=== PATIENT | male | born 1945 | race Hispanic/Latino ===

== ENCOUNTER → 2017-10-11 | Outpatient (CLI) | payer MEDICARE ==
[~2017-10-11] MED LIST: IOPAMIDOL 370 MG/ML 200 ML INFUS..BTL INJ ONE; SODIUM CHLORIDE 0.9% 50ML 50 ML ONE
[2017-10-11 16:24] LABS: CREATININE, SERUM 8.03 mg/dL (0.72-1.25)
--- NOTE | 2017-10-12 07:51 | Diagnostic Imaging Report ---
CT scan abdomen, pelvis and lower extremities. October 11, 2017 Clinical history: Atherosclerosis; leg swelling Technique: Arterial phase protocol CT abdomen, pelvis and lower extremities performed after 100 mL Isovue-370 intravenous contrast. No enteric contrast was administered. Coronal, sagittal and axial images generated from source data. Dose: 1367.69 mGy-cm Comparison: None Findings: Vascular: Abdominal aorta: Mild vpb-visq-ogepcxwa atheromatous plaque. Normal diameter. Celiac axis: Mild ostial calcified plaque and splenic artery arteriosclerosis. Otherwise, normal SMA: Normal JONNY: Normal Renal arteries: Normal Right lower extremity: Common iliac, external iliac, common femoral, profunda femoris and superficial femoral artery demonstrate trace atherosclerosis. Popliteal artery: Proximal calcified and noncalcified plaque with less than 50% narrowing. Anterior tibial artery: Proximally occluded without conspicuous distal reconstitution. The origin remains patent. Tibioperoneal trunk: Fhf-zpnx-kbtjeknh atheromatous plaque. Posterior tibial artery: Multifocal stenosis secondary to calcified plaque with preserved runoff. Peroneal artery: Patent Dorsalis pedis: Diminutive reconstitution. Plantar arteries: Patent. Left lower extremity: Common iliac, external iliac, common femoral, profundus femoris, superficial femoral and popliteal artery are unremarkable. Anterior tibial artery: Proximally occluded without conspicuous distal reconstitution. The origin remains patent. Tibioperoneal trunk: Aln-nkrn-xlotlxvm atheromatous plaque. Posterior tibial artery: Multifocal stenosis secondary to calcified plaque with preserved runoff. Peroneal artery: Patent Results pedis: No conspicuous reconstitution. Plantar arteries: Patent Nonvascular findings: Small pleural effusions bilaterally. Bibasilar subsegmental atelectasis. Lung bases otherwise clear. Normal heart size. Left anterior descending coronary artery calcification. Liver: Nodular contour with left lobe and caudate hypertrophy. Gallbladder: Normal Pancreas: Atrophic; otherwise, normal Spleen: Span 16 cm Adrenal glands: Mild to getting without nodularity. Kidneys: Bilateral parenchymal atrophy; otherwise, normal Urinary bladder: Decompressed Prostate and seminal vesicles: Normal Bowel: Normal caliber Peritoneum: Normal Lymph nodes: Normal Skeleton: Multilevel degenerative disc disease with facet arthropathy resulting in multilevel neural foramen stenosis. Soft tissues: Scrotal edema. Bilateral lower extremity soft tissue swelling. Impression: 1. 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 Suprapopliteal arteries are essentially unremarkable. 2. 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 Suprapopliteal arteries are essentially unremarkable. 3. Cirrhotic liver with splenomegaly consistent with portal hypertension. 4. Small pleural effusions. This report was generated with voice-recognition technology. Errors in customs house broker can occur. Please interpret accordingly and contact a radiologist if there are any questions regarding the report. Signed by: Dr. Lakhwinder Erwin M.D. on 10/12/2017 7:48 AM
== END ==
LOC: CT 14:54
DX: I70.203 Unspecified atherosclerosis of native arteries of extremities, bilateral legs (principal)
CPT/HCPCS: 36415; 75635; 82565; 84520; Q9967

== ENCOUNTER → 2019-05-13 | Outpatient (CLI) | payer MEDICARE ==
[2019-05-13 08:46] LABS: INR 1.16; PROTHROMBIN TIME 15.4 seconds (11.9-14.5)
--- NOTE | 2019-05-13 09:53 | Diagnostic Imaging Report ---
Chest, 1 view, 05/13/2019. History: Post right thoracentesis. Comparison: None available. Findings: The cardiomediastinal silhouette and pulmonary vasculature are within prominent. Patchy bibasilar opacities are present with blunting of the calcified sulci. There is no evidence of a pneumothorax. There are no acute osseous or soft tissue abnormalities. Impression: No evidence of complication post right thoracentesis. Findings suggestive of pulmonary edema with bibasilar atelectasis and effusions remain. Signed by: Allan Laguna on 05/13/2019 9:50 AM
--- NOTE | 2019-05-13 09:57 | Diagnostic Imaging Report ---
Ultrasound-guided thoracentesis. Clinical History: ^RT PLEURAL EFFUSION. Informed consent was obtained from the patient and the risks of the procedure were explained including bleeding, infection, pneumothorax and visceral injury. Sedation: 1% Xylocaine was used as local sedation. Conscious sedation protocol was not utilized as no systemic analgesia was administered. Technique: Using sterile technique, ultrasound guidance and 5 Indian coaxial needle, the tip of the needle was inserted into the right pleural space. The needle was removed and the outer catheter was connected to plastic tubing. The tubing then was connected to a Vacutainer bottle. The procedure yielded 650 cc of serosanguineous fluid. The catheter was removed. No immediate complications developed. Estimated blood loss: None. Patient disposition: The patient was asymptomatic at the end of the exam. A followup chest x-ray will be performed while the patient is in the department to ensure that no pneumothorax developed. Impression: Successful right sided thoracentesis. Signed by: Allan Laguna on 05/13/2019 9:53 AM
== END ==
LOC: US 06:26
PROVIDERS: ATTEND Internal Medicine Critical Care Medicine
DX: J90 Pleural effusion, not elsewhere classified (principal)
CPT/HCPCS: 32555; 36415; 71045; 85049; 85610; 85730

== ENCOUNTER → 2019-05-30 | Outpatient (CLI) | payer MEDICARE ==
--- NOTE | 2019-05-30 13:26 | Diagnostic Imaging Report ---
EXAM: CT Chest WITHOUT intravenous contrast 05/30/2019 12:28 PM INDICATION: Pleural effusion COMPARISON: Chest radiograph of 05/13/2019 TECHNIQUE: Chest was scanned utilizing a multidetector helical scanner from the lung apex through the level of the adrenal glands without administration of IV contrast. Coronal and sagittal reformations were obtained. Routine protocol was performed. IV CONTRAST: None RADIATION DOSE: Total DLP: 574.8 mGy*cm. Dose modulation, iterative reconstruction, and/or weight based adjustment of the mA/kV was utilized to reduce the radiation dose to as low as reasonably achievable. COMPLICATIONS: None FINDINGS: LINES/ TUBES: None. LUNGS AND AIRWAYS: The central airways are patent. No focal pneumonia or pulmonary edema. Bibasilar dependent subsegmental atelectasis. 3.0 cm consolidation at the anterior right middle lobe and 3.07 m consolidation at the left lower lobe have the appearance of rounded atelectasis. Subcentimeter right middle lobe calcified granuloma. No suspicious pulmonary nodules. PLEURA: Moderate circumstantial right pleural effusion. Small left pleural effusion. No pneumothorax. HEART AND MEDIASTINUM: The thyroid gland is normal. Scattered prominent mediastinal lymph nodes not meeting size criteria for lymphadenopathy. Small bilateral calcified hilar lymph nodes. Mild multichamber cardiomegaly. No pericardial effusion. Atherosclerotic calcifications of the coronary arteries, thoracic aorta, and great vessels. UPPER ABDOMEN: Limited noncontrast images of the upper abdomen demonstrate mildly nodular liver surface contour consistent with hepatic cirrhosis. No focal abnormality of the partially visualized spleen, pancreas, adrenals, or upper most kidneys. BONES: No acute osseous injury. No suspicious lytic or blastic lesions. SOFT TISSUES: Unremarkable. IMPRESSION: Moderate right and small left pleural effusions. No focal consolidation or pulmonary edema. Bibasilar subsegmental atelectasis and rounded atelectasis at the right middle lobe and left lower lobe. Bilateral calcified hilar lymphadenopathy. Hepatic cirrhosis. Signed by: Rocio Mims MD on 05/30/2019 1:23 PM
== END ==
LOC: CT 12:16
PROVIDERS: ATTEND Internal Medicine Critical Care Medicine
DX: J90 Pleural effusion, not elsewhere classified (principal)
CPT/HCPCS: 71250

== ENCOUNTER → 2019-06-19 | Outpatient (CLI) | payer MEDICARE ==
[~2019-06-19] MED LIST changes: -IOPAMIDOL 370 MG/ML 200 ML INFUS..BTL INJ ONE; +SODIUM CHLORIDE 0.9% 500ML 0 ML ONE; -SODIUM CHLORIDE 0.9% 50ML 50 ML ONE
[2019-06-19 09:24] LABS: BASOPHILS % 0.4 % (0.0-1.0); EOSINOPHILS # (AUTO) 0.1 (0.0-0.4); EOSINOPHILS % 1.6 % (0.0-6.0); HEMATOCRIT 34.9 % (38.2-49.6); HEMOGLOBIN 10.8 g/dL (14.0-18.0); LYMPHOCYTES # (AUTO) 1.4 (1.0-3.2); LYMPHOCYTES % 16.8 % (18.0-39.1); MEAN CORPUSCULAR HEMOGLOBIN 30.4 pg (28-32); MEAN CORPUSCULAR HGB CONC 30.9 g/dL (31-35); MEAN CORPUSCULAR VOLUME 98.3 fL (81-99); MONOCYTES # (AUTO) 0.9 (0.2-0.8); MONOCYTES % 11.5 % (4.4-11.3); NEUTROPHILS # (AUTO) 5.5 (2.1-6.9); NEUTROPHILS % 68.3 % (38.7-80.0); PLATELET COUNT 140 x10e3/uL (140-360); RED BLOOD COUNT 3.55 x10e6/uL (4.3-5.7); RED CELL DISTRIBUTION WIDTH 14.2 % (11.7-14.4)
[2019-06-19 09:39] LABS: INR 1.07; PROTHROMBIN TIME 14.4 seconds (11.9-14.5)
[2019-06-19 09:52] LABS: PARTIAL THROMBOPLASTIN TIME 124.2 seconds (23.8-35.5)
--- NOTE | 2019-06-19 12:10 | Diagnostic Imaging Report ---
PROCEDURE: Ultrasound-guided thoracentesis Procedural Personnel Attending physician(s): Rocio Mims MD Fellow physician(s): None Resident physician(s): None Advanced practice provider(s): None Pre-procedure diagnosis: Right pleural effusion Post-procedure diagnosis: Same Indication: Pleural effusion with compromised respiration Additional clinical history: None Complications: No immediate complications. IMPRESSION: Ultrasound-guided thoracentesis with drainage of 300 mL of charisma fluid. Plan: Resume care by clinical team. PROCEDURE SUMMARY: - Limited thoracic ultrasound - Ultrasound-guided thoracentesis - Additional procedure(s): None PROCEDURE DETAILS: Pre-procedure Consent: Informed consent for the procedure including risks, benefits and alternatives was obtained and time-out was performed prior to the procedure. Preparation: The site was prepared and draped using maximal sterile barrier technique including cutaneous antisepsis. Anesthesia/sedation Level of anesthesia/sedation: No sedation Anesthesia/sedation administered by: Not applicable Limited thoracic ultrasound Limited thoracic ultrasound was performed using a curved transducer. A safe window for thoracentesis was identified. Left hemithorax findings: Not investigated Right hemithorax findings: Small pleural effusion Thoracentesis Local anesthesia was administered. The pleural space was accessed under real-time ultrasound guidance and fluid return confirmed position. The fluid was drained. The catheter was removed, and a sterile bandage was applied. Catheter placed: 5F Yueh Post-drainage hemithorax findings: Trace pleural effusion Additional Details Additional description of procedure: None Equipment details: None Specimens removed: Pleural fluid Estimated blood loss (mL): Less than 10 Standardized report: [email or web address] Attestation Signer name: Rocio Mims MD I attest that I was present for the entire procedure. I reviewed the stored images and agree with the report as written. Signed by: Rocio Mims MD on 06/19/2019 12:07 PM
--- NOTE | 2019-06-19 12:15 | Diagnostic Imaging Report ---
EXAMINATION: CHEST XRAY POST PROCEDURE INDICATION: Postprocedural COMPARISON: Chest CT of 05/30/2019 FINDINGS: LINES/TUBES:None LUNGS:The right lung is moderately inflated. The left lung is well inflated. Patchy bibasilar opacities. Nodular opacities at the lateral right lower lung and at the left lung base to correspond with areas most likely representing rounded atelectasis on the prior CT. PLEURA:Small right pleural effusion. No pneumothorax. MEDIASTINUM:The cardiomediastinal silhouette appears unchanged in size and shape. Atherosclerotic calcifications of the thoracic aorta. BONES/SOFT TISSUES:No acute osseous injury. ABDOMEN:No free air under the diaphragm. IMPRESSION: No pneumothorax status post right thoracentesis. Small residual right pleural effusion. Bibasilar patchy opacities, most likely subsegmental atelectasis. Bilateral nodular opacities correspond with areas most likely representing rounded atelectasis on the prior CT. Signed by: Rocio Mims MD on 06/19/2019 12:12 PM
[2019-06-19 14:29] LABS: LYMPHOCYTES,BODY FLUID 71 %; MONO/MACROPHG,BODY FLUID 7 %; NEUTROPHILS,BODY FLUID 13 %; OTHER CELLS,BODY FLUID 9 %
[2019-06-19 15:01] LABS: BODY FLUID APPEARANCE TURBID; BODY FLUID COLOR RED
[2019-06-19 15:02] LABS: RBC,BODY FLUID 6301 cells/uL; WBC,BODY FLUID 59 cells/uL
[2019-06-19 15:24] LABS: BODY FLUID TYPE PLEURAL
== END ==
LOC: US 08:54
PROVIDERS: ATTEND Internal Medicine Critical Care Medicine
DX: J90 Pleural effusion, not elsewhere classified (principal)
CPT/HCPCS: 32555; 36415; 71045; 83615; 84157; 85025; 85610; 85730; 88112; 88305; 89051; J7040

== ENCOUNTER → 2019-10-30 | Outpatient (CLI) | payer MEDICARE ==
[2019-10-30 08:37] LABS: HEMOGLOBIN 11.9 g/dL (14.0-18.0)
[2019-10-30 08:51] LABS: INR 1.23; PROTHROMBIN TIME 16.3 seconds (11.9-14.5)
[2019-10-30 08:59] LABS: PARTIAL THROMBOPLASTIN TIME 118.2 seconds (23.8-35.5)
--- NOTE | 2019-10-30 10:02 | Diagnostic Imaging Report ---
Ultrasound guided left thoracentesis History: Left pleural effusion Technique: Written informed consent was obtained after discussing risks, benefits, and alternatives of the procedure with the patient. Patient was brought to the ultrasound suite and placed on the table in upright position. Pre-procedural ultrasound demonstrates a moderate pleural effusion. Suitable percutaneous access site was chosen in the posterior left chest. Overlying skin was prepared and draped in the usual sterile fashion. Planned needle tract was anesthetized with dilute Lidocaine for local anesthesia. Using sonographic guidance, an 5 Romanian Yueh needle was advanced into the right pleural effusion. Plant Attendant Or Assistant Operator images saved in the patient's medical record. Needle was removed, and catheter was advanced. Subsequently, 70 cc of dark red, nonclotting fluid was evacuated. Catheter was removed. Hemostasis achieved at puncture site by direct compression. The patient tolerated the procedure well. There were no complications. Post procedure chest x ray was ordered. Impression: Technically successful sonographic guided left thoracentesis with evacuation of 700 cc of fluid. Signed by: Dr. Gerard Guzman MD on 10/30/2019 9:58 AM
--- NOTE | 2019-10-30 10:03 | Diagnostic Imaging Report ---
EXAM: CHEST SINGLE (NOT PORTABLE) DATE: 10/30/2019 9:27 AM INDICATION: Status post thoracentesis COMPARISON: 06/19/2019 FINDINGS: There is no evidence for pneumothorax status post left-sided thoracentesis. Trace residual left pleural effusion remains with associated left basilar atelectasis. There is a small right pleural effusion with associated right basilar atelectasis. Stable nodular opacity noted within the right lower lung zone likely reflecting known round atelectasis as noted on the prior CT examination. There is no evidence for large focal consolidation. The cardiac mediastinal silhouette is stable in appearance. No acute osseous abnormality is identified. IMPRESSION: No evidence for pneumothorax status post left thoracentesis. Trace residual left pleural effusion and small right pleural effusion with bibasilar atelectasis. Signed by: Dr. Gerard Guzman MD on 10/30/2019 10:00 AM
[2019-10-30 13:08] LABS: BODY FLUID APPEARANCE TURBID; BODY FLUID COLOR RED; BODY FLUID TYPE PLEURAL
[2019-10-30 13:25] LABS: RBC,BODY FLUID 155100 cells/uL; WBC,BODY FLUID 660 cells/uL
[2019-10-30 14:11] LABS: LYMPHOCYTES,BODY FLUID 39 %; MONO/MACROPHG,BODY FLUID 42 %; NEUTROPHILS,BODY FLUID 18 %; OTHER CELLS,BODY FLUID 1 %
== END ==
LOC: US 08:01
PROVIDERS: ATTEND Internal Medicine Critical Care Medicine
DX: J90 Pleural effusion, not elsewhere classified (principal)
CPT/HCPCS: 32555; 36415; 71045; 83615; 84157; 84478; 85014; 85049; 85610; 85730; 87070; 87205; 89051

== ENCOUNTER → 2020-01-03 | Outpatient (CLI) | payer MEDICARE ==
--- NOTE | 2020-01-03 09:58 | Diagnostic Imaging Report ---
at CT of the chest. Comparison: None Clinical History: Right pleural effusion Technique: Helical CT scan of the chest was performed from just above the thoracic inlet through the adrenal glands. Intravenous contrast administration was not utilized. Coronal and sagittal reconstructions were generated from the raw data. Multiple images were submitted for interpretation. This exam was performed according to our departmental dose-optimization program which includes automated exposure control, adjustment of the mA and/or kV according to patient size Discussion: Lung mendez: There is asymmetry the hemithoraces with lower volume of the right hemithorax. There is an oblong broad pleural based opacity in the right lung anterior segment. A similar opacity is seen in the right lower lobe extending from the superior segment into the posterior basal segment. There is a similar opacity in the left lung lower lobe superior segment extending into the basal segments and a smaller opacity in the lingular lobe. The show air bronchograms at least on their central aspects. Punctate calcifications are seen in all these areas suggesting associated prior granulomas. No other pulmonary nodules. Central airways: Unremarkable Pleural spaces and pleura: There is presence of bilateral pleural effusions, right more than left. There is an additional smaller loculated effusion anteriorly on the right side with low HU. The fluid has a density of 17 HU on the right and HU on the left side. Pulmonary damian: Calcified small lymph nodes bilaterally otherwise unremarkable Mediastinum: Multiple small calcified lymph nodes around the trachea, and subcarinal space, in the prevascular space and also in the anterior mediastinum. This is suggestive of old healed granulomatous disease. Cardiac chambers and pericardium: There is cardiomegaly. The enlargement of the left ventricle is especially unremarkable. There is presence of coronary artery calcification. There is no pericardial effusion. Systemic great vessels: Atherosclerotic calcification of the aorta and its major branches. Central pulmonary vessels: Unremarkable Thyroid: Unremarkable Lymph nodes: As described above Azygos vein: Unremarkable The esophagus: Normal. Thoracic duct: Unremarkable Osseous structures: Degenerative changes Upper abdomen: Calcified granulomas mostly in the liver. Otherwise unremarkable Body wall: Unremarkable Breasts: Unremarkable Axilla: Unremarkable Lower neck: Minimal atherosclerotic calcification of the common carotid artery. Impression: Bilateral pulmonary opacities with air bronchograms and tiny calcifications. The differential diagnosis would include airspace disease such as consolidation/collapse. Infection is a possibility. Neoplastic process is not entirely ruled out. These opacities should be followed to resolution with follow-up imaging in a few weeks. Bilateral pleural effusions. Other findings as described above. Signed by: Lorenzo Lunsford MD on 01/03/2020 9:55 AM
== END ==
LOC: CT 08:12
PROVIDERS: ATTEND Internal Medicine Critical Care Medicine
DX: J90 Pleural effusion, not elsewhere classified (principal)
CPT/HCPCS: 71250

== ENCOUNTER 2020-04-28 19:17 | Inpatient (IN) | payer MEDICARE ==
[~2020-04-28] VITALS: Ht 177.8 cm; Wt 80.3 kg
[2020-04-28 19:36] VITALS: BP 143/87
[2020-04-28 20:13] LABS: BASOPHILS % 0.5 % (0.0-1.0); EOSINOPHILS # (AUTO) 0.1 (0.0-0.4); HEMATOCRIT 34.8 % (38.2-49.6); HEMOGLOBIN 11.2 g/dL (14.0-18.0); LYMPHOCYTES # (AUTO) 1.2 (1.0-3.2); LYMPHOCYTES % 19.6 % (18.0-39.1); MEAN CORPUSCULAR HEMOGLOBIN 31.4 pg (28-32); MEAN CORPUSCULAR HGB CONC 32.2 g/dL (31-35); MEAN CORPUSCULAR VOLUME 97.5 fL (81-99); MONOCYTES # (AUTO) 0.7 (0.2-0.8); MONOCYTES % 12.5 % (4.4-11.3); NEUTROPHILS # (AUTO) 3.8 (2.1-6.9); NEUTROPHILS % 65.2 % (38.7-80.0); PLATELET COUNT 186 x10e3/uL (140-360); RED BLOOD COUNT 3.57 x10e6/uL (4.3-5.7); RED CELL DISTRIBUTION WIDTH 15.2 % (11.7-14.4)
[2020-04-28] MEDS ORDERED: LORAZEPAM 0.5 MG TAB PO PRN (20:30)
[2020-04-28 20:34] LABS: ALBUMIN 3.6 g/dL (3.5-5.0); ALBUMIN/GLOBULIN RATIO 0.9 (0.8-2.0); ANION GAP 15.4 mmol/L (8-16); CREATININE, SERUM 4.15 mg/dL (0.72-1.25); POTASSIUM 4.4 mmol/L (3.5-5.1)
[2020-04-28 21:00] VITALS: BP 143/87
[2020-04-28 21:03] VITALS: BP 143/87
[2020-04-28] MEDS ORDERED: HEPARIN 25,000 UNIT 25,000 UNIT in DEXTROSE 5% 250ML 250 ML IV SCH (21:15)
[2020-04-28] MEDS ORDERED: RENAGEL800 MG PO (21:34)
[2020-04-28] MEDS ORDERED: CYCLOBENZAPRINE10 MG PO (21:34)
[2020-04-28] MEDS ORDERED: HYDRALAZINE HCL25 MG PO (21:34)
[2020-04-28] MEDS ORDERED: GLIPIZIDE ER5 MG PO (21:34)
[2020-04-28] MEDS ORDERED: GLIMEPIRIDE2 MG PO (21:34)
[2020-04-28] MEDS ORDERED: GABAPENTIN300 MG PO (21:34)
[2020-04-28] MEDS ORDERED: METOPROLOL TART50 MG PO (21:34)
[2020-04-28] MEDS ORDERED: FUROSEMIDE40 MG PO (21:34)
[2020-04-28] MEDS ORDERED: OMEPRAZOLE40 MG PO (21:34)
[2020-04-28] MEDS ORDERED: HEPARIN SOD (PORCINE) 5,000 UNIT/ML VIAL IV ONE (22:45)
[2020-04-28 22:49] LABS: CREATINE KINASE 26 IU/L (30-200)
[2020-04-28] MEDS ORDERED: HEPARIN 25,000 UNIT DRIP IV ONE (23:28)
[2020-04-28] MEDS: SODIUM CHLORIDE 0.9% IV SCH ×2 (23:36→23:37)
[2020-04-28] MEDS: HEPARIN IV SCH ×2 (23:36→23:37)
[2020-04-29] VITALS (11 sets, daily range): BP systolic 151–173; BP diastolic 68–87
[2020-04-29] MEDS ORDERED: DOCUSATE SODIUM 100 MG CAP PO PRN (06:45)
[2020-04-29] MEDS ORDERED: GUAIFENESIN/DEXTROMETHORPHAN LIQD 5 ML UDC NG PRN (06:45)
[2020-04-29] MEDS ORDERED: GABAPENTIN 300 MG CAP PO PRN (06:45)
[2020-04-29] MEDS ORDERED: PANTOPRAZOLE SOD 40 MG TABEC PO PRN (06:45)
[2020-04-29] MEDS ORDERED: HYDRALAZINE HCL 100 MG TABLET PO PRN (06:45)
[2020-04-29] MEDS ORDERED: ONDANSETRON HCL INJ 2MG/ML 2ML 2 MG/ML VIAL IV PRN (06:45)
[2020-04-29 07:01] LABS: CHOL/HDL RATIO 2.8 (3.9-4.7)
[2020-04-29] MEDS ORDERED: SODIUM CHLORIDE 0.9% 50ML 0 ML ONE (09:00)
[2020-04-29] MEDS: CYCLOBENZAPRINE HCL 10 MG TAB PO SCH ×3 (09:00→21:00)
[2020-04-29] MEDS ORDERED: IOPAMIDOL 370 MG/ML 200 ML INFUS..BTL INJ ONE (09:00)
[2020-04-29] MEDS: METOPROLOL TARTRATE 50 MG TAB PO SCH ×2 (09:23→17:16)
[2020-04-29] MEDS: SEVELAMER CARBONATE 800 MG TAB PO SCH ×3 (09:24→17:12)
[2020-04-29 10:21] LABS: INR 6.42; PARTIAL THROMBOPLASTIN TIME > 200.0 seconds (23.8-35.5); PROTHROMBIN TIME 59.2 seconds (11.9-14.5)
[2020-04-29] MEDS: BENZONATATE 100 MG CAP PO PRN (20:40)
[2020-04-29] MEDS ORDERED: ZOLPIDEM TARTRATE 5 MG TAB PO PRN (21:00)
[2020-04-30] VITALS (9 sets, daily range): BP systolic 101–179; BP diastolic 52–90
[2020-04-30] MEDS ORDERED: HYDRALAZINE HCL 100 MG TABLET PO SCH ×2 (06:30→15:00)
[2020-04-30] MEDS ORDERED: SODIUM CHLORIDE 0.9% 1000ML 2,000 ML ONE (07:52)
[2020-04-30] MEDS: SEVELAMER CARBONATE 800 MG TAB PO SCH ×3 (08:00→17:37)
[2020-04-30] MEDS: CYCLOBENZAPRINE HCL 10 MG TAB PO SCH ×3 (09:00→22:08)
[2020-04-30] MEDS: METOPROLOL TARTRATE 50 MG TAB PO SCH ×2 (09:00→17:37)
[2020-04-30] MEDS ORDERED: ALBUMIN 25% 12.5GM 0.25 GM/ML BTL IV ONE ×2 (11:15)
[2020-04-30] MEDS ORDERED: SODIUM CHLORIDE 0.9% 1000ML 2,000 ML IV PRN (12:00)
[2020-04-30] MEDS ORDERED: ALBUMIN 25% 12.5GM 0.25 GM/ML BTL IV PRN (12:00)
[2020-04-30] MEDS: BENZONATATE 100 MG CAP PO PRN ×2 (13:19→22:08)
[2020-04-30] MEDS ORDERED: ZOLPIDEM TARTRATE 5 MG TAB PO SCH (21:00)
[2020-05-01] VITALS: BP 127/57
[2020-05-01 04:00] VITALS: BP 161/67
[2020-05-01 05:46] LABS: INR 3.12; PROTHROMBIN TIME 33.6 seconds (11.9-14.5)
[2020-05-01 07:48] VITALS: BP 148/65
[2020-05-01] MEDS: CYCLOBENZAPRINE HCL 10 MG TAB PO SCH (07:55)
[2020-05-01] MEDS: SEVELAMER CARBONATE 800 MG TAB PO SCH (07:55)
[2020-05-01 07:57] VITALS: BP 148/65
[2020-05-01] MEDS: METOPROLOL TARTRATE 50 MG TAB PO SCH (07:57)
[2020-05-01] MEDS ORDERED: Guaifenesin/Dextromethorphan NG (07:58)
[2020-05-01] MEDS ORDERED: TESSALON PERLE100 MG PO (07:58)
[2020-05-01] MEDS ORDERED: METOPROLOL TART50 MG PO (07:58)
[2020-05-01] MEDS ORDERED: ONDANSETRON HCL 4 MG ORAL DISINTEGRATING TAB PO PRN (11:15)
[2020-05-01 12:00] VITALS: BP 132/62
== END 2020-05-01 13:09 | disposition home or self-care (01) | DRG 314 ==
LOC: MED/SURG 19:17 → OBSVTOIN 04-30 11:12
PROVIDERS: ADMIT Internal Medicine; ATTEND Internal Medicine
PROC: 5A1D70Z Performance of Urinary Filtration, Intermittent, Less than 6 Hours Per Day (ICD-10-PCS; principal; 2020-04-30)
DX: I27.20 Pulmonary hypertension, unspecified (principal); N18.6 End stage renal disease; D68.61 Antiphospholipid syndrome; J81.1 Chronic pulmonary edema; J90 Pleural effusion, not elsewhere classified; I12.0 Hypertensive chronic kidney disease with stage 5 chronic kidney disease or end stage renal disease; J84.10 Pulmonary fibrosis, unspecified; R09.02 Hypoxemia; E11.22 Type 2 diabetes mellitus with diabetic chronic kidney disease; Z99.2 Dependence on renal dialysis; Z86.718 Personal history of other venous thrombosis and embolism; I25.10 Atherosclerotic heart disease of native coronary artery without angina pectoris; D64.9 Anemia, unspecified; E11.42 Type 2 diabetes mellitus with diabetic polyneuropathy; E87.8 Other disorders of electrolyte and fluid balance, not elsewhere classified
CPT/HCPCS: 36415; 71045; 71250; 76604; 78580; 80053; 80061; 82550; 82553; 82948; 83036; 84484; 85025; 85379; 85610; 85730; 86705; 86706; 87340; 90962; 93041; 93306; 93970; 96365; 97139; 99251; A9540; G0378; J1644; J2405; J7030; Q9967; U0002

== ENCOUNTER 2020-11-20 12:57 | Emergency (ER) | payer MEDICARE ==
[~2020-11-20] VITALS: Ht 177.8 cm; Wt 80.3 kg
[~2020-11-20 12:57] MED LIST changes: +CYCLOBENZAPRINE10 MG PO; +FUROSEMIDE40 MG PO; +GABAPENTIN300 MG PO; +GLIMEPIRIDE2 MG PO; +GLIPIZIDE ER5 MG PO; +Guaifenesin/Dextromethorphan NG; +HYDRALAZINE HCL25 MG PO; +METOPROLOL TART50 MG PO; +OMEPRAZOLE40 MG PO; +RENAGEL800 MG PO; -SODIUM CHLORIDE 0.9% 500ML 0 ML ONE; +TESSALON PERLE100 MG PO
[2020-11-20] MEDS ORDERED: AMITRIPTYLINE H25 MG PO (13:09)
[2020-11-20] MEDS ORDERED: LIDOCAINE 4% PATCH TP STA (13:10)
[2020-11-20] MEDS ORDERED: DEXAMETHASONE 4 MG TAB PO NR (13:15)
[2020-11-20] MEDS ORDERED: KETOROLAC TROMETHAMINE 30 MG/ML VIAL IM NR (13:15)
[2020-11-20] MEDS ORDERED: ACETAMINOPHEN 325 MG TAB PO ONE (13:15)
== END 2020-11-20 14:12 | disposition home or self-care (01) ==
LOC: ER 13:35
DX: M54.42 Lumbago with sciatica, left side (principal); M54.41 Lumbago with sciatica, right side; I12.9 Hypertensive chronic kidney disease with stage 1 through stage 4 chronic kidney disease, or unspecified chronic kidney disease; N18.9 Chronic kidney disease, unspecified
CPT/HCPCS: 99283; J1885; J8540

== ENCOUNTER 2020-12-07 15:00 | Observation (INO) | payer MEDICARE ==
[~2020-12-07] VITALS: Ht 177.8 cm; Wt 80.3 kg
[~2020-12-07 15:00] MED LIST changes: +AMITRIPTYLINE H25 MG PO
[2020-12-07 16:30] LABS: BASOPHILS % 0.3 % (0.0-1.0); EOSINOPHILS # (AUTO) 0.1 (0.0-0.4); EOSINOPHILS % 0.8 % (0.0-6.0); HEMATOCRIT 36.9 % (38.2-49.6); HEMOGLOBIN 11.3 g/dL (14.0-18.0); LYMPHOCYTES # (AUTO) 0.2 (1.0-3.2); LYMPHOCYTES % 1.8 % (18.0-39.1); MEAN CORPUSCULAR HEMOGLOBIN 31.7 pg (28-32); MEAN CORPUSCULAR HGB CONC 30.6 g/dL (31-35); MEAN CORPUSCULAR VOLUME 103.4 fL (81-99); MONOCYTES # (AUTO) 0.7 (0.2-0.8); MONOCYTES % 7.3 % (4.4-11.3); NEUTROPHILS # (AUTO) 8.5 (2.1-6.9); NEUTROPHILS % 89.4 % (38.7-80.0); PLATELET COUNT 140 x10e3/uL (140-360); RED BLOOD COUNT 3.57 x10e6/uL (4.3-5.7); RED CELL DISTRIBUTION WIDTH 15.1 % (11.7-14.4)
[2020-12-07] MEDS ORDERED: SODIUM CHLORIDE 0.9% 50ML 50 ML ONE (16:42)
[2020-12-07] MEDS ORDERED: IOPAMIDOL 370 MG/ML 200 ML INFUS..BTL INJ ONE (16:42)
[2020-12-07 16:46] LABS: ALBUMIN 3.3 g/dL (3.5-5.0); ALBUMIN/GLOBULIN RATIO 0.9 (0.8-2.0); ANION GAP 17.8 mmol/L (8-16); CALCIUM 9.3 mg/dL (8.4-10.2); CREATININE, SERUM 6.05 mg/dL (0.72-1.25); POTASSIUM 5.8 mmol/L (3.5-5.1)
[2020-12-07 17:02] LABS: CREATINE KINASE MB 1.2 ng/mL (0-5.0)
[2020-12-07] MEDS ORDERED: SODIUM BICARBONATE 8.4% INJ 50 ML SYR IV STA (19:01)
[2020-12-07] MEDS ORDERED: DEXTROSE 50% SYRINGE 50 ML IV STA (19:01)
[2020-12-07] MEDS ORDERED: SOD POLYSTYRENE SULFONATE SUSP 15 GM/60 ML BTL PO ONE (19:15)
[2020-12-07] MEDS ORDERED: INSULIN REGULAR, HUMAN 100 UNIT/1 ML 3ML VIAL IV ONE (19:15)
[2020-12-07] MEDS ORDERED: CALCIUM GLUCONATE 10% INJ 13.95 MEQ in SODIUM CHLORIDE 0.9% 100 ML 100 ML IV ONE (19:25)
[2020-12-07] MEDS ORDERED: SODIUM CHLORIDE FLUSH 10 ML SYR INJ PRN (21:15)
[2020-12-07] MEDS ORDERED: ONDANSETRON HCL INJ 2MG/ML 2ML 2 MG/ML VIAL IV PRN (21:15)
[2020-12-08] VITALS (10 sets, daily range): BP systolic 110–170; BP diastolic 53–62
[2020-12-08] MEDS ORDERED: CYCLOBENZAPRINE HCL 10 MG TAB PO PRN (01:00)
[2020-12-08] MEDS: ACETAMINOPHEN 325 MG TAB PO PRN ×2 (02:07→23:41)
[2020-12-08 07:01] LABS: BASOPHILS % 0.4 % (0.0-1.0); EOSINOPHILS # (AUTO) 0.1 (0.0-0.4); EOSINOPHILS % 1.9 % (0.0-6.0); HEMATOCRIT 33.2 % (38.2-49.6); HEMOGLOBIN 10.2 g/dL (14.0-18.0); LYMPHOCYTES # (AUTO) 0.6 (1.0-3.2); LYMPHOCYTES % 8.1 % (18.0-39.1); MEAN CORPUSCULAR HEMOGLOBIN 31.6 pg (28-32); MEAN CORPUSCULAR HGB CONC 30.7 g/dL (31-35); MEAN CORPUSCULAR VOLUME 102.8 fL (81-99); MONOCYTES # (AUTO) 0.7 (0.2-0.8); MONOCYTES % 9.4 % (4.4-11.3); NEUTROPHILS % 79.8 % (38.7-80.0); PLATELET COUNT 139 x10e3/uL (140-360); RED BLOOD COUNT 3.23 x10e6/uL (4.3-5.7); RED CELL DISTRIBUTION WIDTH 15.1 % (11.7-14.4)
[2020-12-08 07:20] LABS: ALBUMIN 2.8 g/dL (3.5-5.0); ALBUMIN/GLOBULIN RATIO 0.8 (0.8-2.0); ANION GAP 17.7 mmol/L (8-16); CALCIUM 8.9 mg/dL (8.4-10.2); CREATININE, SERUM 6.55 mg/dL (0.72-1.25)
[2020-12-08 07:21] LABS: POTASSIUM 5.7 mmol/L (3.5-5.1)
[2020-12-08] MEDS ORDERED: SODIUM CHLORIDE 0.9% 1000ML 2,000 ML ONE (17:14)
[2020-12-09 00:58] VITALS: BP 129/55
[2020-12-09 04:40] VITALS: BP 106/53
[2020-12-09 08:02] VITALS: BP 145/64
[2020-12-09 08:29] VITALS: BP 145/64
[2020-12-09] MEDS: ACETAMINOPHEN 325 MG TAB PO PRN (10:07)
[2020-12-09] MEDS ORDERED: WARFARIN SODIUM2 MG PO (10:47)
[2020-12-09] MEDS ORDERED: METOPROLOL TART50 MG PO (10:47)
[2020-12-09] MEDS ORDERED: VENTOLIN HFA18 GM INH (10:47)
[2020-12-09] MEDS ORDERED: AMLODIPINE BESY10 MG PO (10:47)
[2020-12-09] MEDS ORDERED: FENOFIBRATE134 MG PO (10:48)
[2020-12-09 12:11] VITALS: BP 162/75
== END 2020-12-09 12:15 | disposition home or self-care (01) ==
LOC: ER 16:00 → ERHOLD 21:14 → MED/SURG2 12-08 00:11
PROVIDERS: ADMIT Internal Medicine; ATTEND Internal Medicine
DX: E87.5 Hyperkalemia (principal); N18.6 End stage renal disease; Z99.2 Dependence on renal dialysis; I12.0 Hypertensive chronic kidney disease with stage 5 chronic kidney disease or end stage renal disease; M54.30 Sciatica, unspecified side; K59.00 Constipation, unspecified; Z82.49 Family history of ischemic heart disease and other diseases of the circulatory system; Z20.822 Contact with and (suspected) exposure to COVID-19
CPT/HCPCS: 36415 ×3; 74177; 80053 ×2; 82550; 82553; 82948; 84132; 84484; 85025 ×2; 86704; 87340; 87350; 90935; 93005; 99284; G0378 ×3; J0610; J1817; J7030; J7799; Q9967; U0002

== ENCOUNTER 2020-12-27 10:51 | Emergency (ER) | payer SELFPAY ==
[~2020-12-27] VITALS: Ht 177.8 cm; Wt 80.3 kg
[~2020-12-27 10:51] MED LIST changes: +AMLODIPINE BESY10 MG PO; +FENOFIBRATE134 MG PO; +VENTOLIN HFA18 GM INH; +WARFARIN SODIUM2 MG PO
[2020-12-27 12:08] VITALS: BP 120/62
== END 2020-12-27 11:30 | disposition home or self-care (01) ==
LOC: ER 11:30
DX: M54.41 Lumbago with sciatica, right side (principal); E11.22 Type 2 diabetes mellitus with diabetic chronic kidney disease; I12.0 Hypertensive chronic kidney disease with stage 5 chronic kidney disease or end stage renal disease; N18.6 End stage renal disease; Z99.2 Dependence on renal dialysis
CPT/HCPCS: 99282